=== PATIENT | female | born 1985 | race Caucasian/White ===

== ENCOUNTER 2016-11-12 17:22 | Emergency (ER) | payer BC ==
[2016-11-12 17:34] VITALS: BP 140/65
--- NOTE | 2016-11-12 18:33 | UC ---
FLU HPI - HPI Summary HPI Summary: Pt c/o influenza like symptoms that began 1 week ago. Pt has c/o sore throat and nasal congestion, and generalized body aches. - History of Current Complaint Chief Complaint: UCGeneralIllness Stated Complaint: FLU LIKE Time Seen by Provider: 11/12/16 18:01 Hx Obtained From: Patient Hx Last Menstrual Period: 10/29/16 ?: No Onset/Duration: Gradual Onset, Lasting Days Severity Currently: Mild Severity Initially: Mild Pain Intensity: 0 Pain Scale Used: 0-10 Numeric Associated Signs & Symptoms: Positive: Myalgia, Sore Throat, Nasal Congestion - Allergy/Home Medications Allergies/Adverse Reactions: Allergies Allergy/AdvReac Type Severity Reaction Status Date / Time Cephalexin [From Keflex] Allergy Severe Anaphylatic Verified 11/12/16 17:35 Shock Ibuprofen Allergy Severe "internal Verified 11/12/16 17:35 bleeding" Home Medications: Home Medications Acetaminophen [Extra Strength Acetaminop] 1,000 mg PO ONCE 11/12/16 [History Confirmed 11/12/16] HYDROcodone/ACETAMIN 5-325 MG* [[place] 5-325 TAB*] 1 tab PO Q4H PRN 11/12/16 [ History Confirmed 11/12/16] NK [No Home Medications Reported] 11/12/16 [History Confirmed 11/12/16] Omeprazole CAP* [Prilosec CAP* 20 MG] 20 mg PO DAILY 11/12/16 [History Confirmed 11/12/16] PMH/Surg Hx/FS Hx/Imm Hx Previously Healthy: Yes - Surgical History Surgical History: Yes Surgery Procedure, Year, and Place: neck cervical fusion; screw into R knee; R ankle fractured and pins in it/x3 - Family History Known Family History: Positive: Other - positive FMH of URI - Social History Lives: With Family Alcohol Use: Occasionally Substance Use Type: None Smoking Status (MU): Never Smoked Tobacco - Immunization History Most Recent Influenza Vaccination: [id number] Review of Systems Constitutional: Fatigue Skin: Negative Eyes: Negative ENT: Sore Throat, Other - nasal congestion Respiratory: Cough Cardiovascular: Negative Gastrointestinal: Negative Genitourinary: Negative Motor: Decreased ROM - right ankle Neurovascular: Negative Musculoskeletal: Arthralgia, Decreased ROM - right ankle, Myalgia Neurological: Negative Psychological: Negative All Other Systems Reviewed And Are Negative: Yes Physical Exam Triage Information Reviewed: Yes Appearance: Ill-Appearing Vital Signs: Initial Vital Signs Temp 98.6 F 11/12/16 17:28 Pulse 96 11/12/16 17:28 Resp 17 11/12/16 17:28 BP 140/65 11/12/16 17:28 Pulse Ox 100 11/12/16 17:28 Vital Signs Reviewed: Yes ENT Exam: Other ENT: Positive: Nasal congestion, TM bulging Neck exam: Normal Respiratory Exam: Normal Cardiovascular Exam: Normal Musculoskeletal Exam: Other Musculoskeletal: Positive: Strength Limited @ - right ankle, ROM Limited @ Neurological Exam: Normal Psychological Exam: Normal Skin Exam: Normal Flu Course/Dx - Differential Dx/Diagnosis Differential Diagnosis/HQI/PQRI: Upper Respiratory Infection, Other - viral syndrome Provider Diagnoses: viral syndrome Discharge - Discharge Plan Condition: Stable Disposition: HOME Patient Education Materials: Viral Syndrome (ED) Forms: *Work Release Referrals: No Primary Care Phys,NOPCP [Primary Care Provider] - If Needed
== END 2016-11-12 18:24 | disposition home or self-care (01) ==
LOC: UCCORT 17:22
DX: B34.9 Viral infection, unspecified (principal); R03.0 Elevated blood-pressure reading, without diagnosis of hypertension; Z88.6 Allergy status to analgesic agent; Z88.1 Allergy status to other antibiotic agents
CPT/HCPCS: 87502; 87651; 99201; G0463

== ENCOUNTER 2017-07-06 14:47 | Emergency (ER) | payer SELFPAY ==
[2017-07-06 14:57] VITALS: BP 115/71
--- NOTE | 2017-07-06 15:07 | UC ---
Skin Complaint HPI - HPI Summary HPI Summary: 31F presents with rash since yesterday. She has been traveling all day from [place]. She denies any current chest pain or SOB. She denies any difficulty swallowing. She has never had this rash before. She tried some tea tree oil on it without relief. She denies any new product. It started on her arms and then since spread to her hips. She denies any history of eczema. She denies any fever. She states the rash is itchy. - History of Current Complaint Chief Complaint: UCRash Time Seen by Provider: 07/06/17 14:55 Stated Complaint: POSSIBLE ALLERGIC REACTION Hx Last Menstrual Period: PRESENT - Allergy/Home Medications Allergies/Adverse Reactions: Allergies Allergy/AdvReac Type Severity Reaction Status Date / Time Cephalexin [From Keflex] Allergy Severe Anaphylatic Verified 07/06/17 14:57 Shock Ibuprofen Allergy Severe "internal Verified 07/06/17 14:57 bleeding" Review of Systems Constitutional: Negative Skin: Rash Respiratory: Negative Cardiovascular: Negative All Other Systems Reviewed And Are Negative: Yes PMH/Surg Hx/FS Hx/Imm Hx Endocrine History: Other Other Endocrine History: no DM Cardiovascular History: Other Other Cardiovascular History: no CAD - Surgical History Surgical History: Yes Surgery Procedure, Year, and Place: neck cervical fusion; screw into R knee; R ankle fractured and pins in it/x3 - Family History Known Family History: Positive: Other - positive FMH of URI - Social History Alcohol Use: Occasionally Substance Use Type: None Smoking Status (MU): Never Smoked Tobacco - Immunization History Most Recent Influenza Vaccination: [id number] Physical Exam Triage Information Reviewed: Yes Appearance: Well-Appearing Vital Signs: Initial Vital Signs Temp 97.6 F 07/06/17 14:52 Pulse 95 07/06/17 14:52 Resp 18 07/06/17 14:52 BP 115/71 07/06/17 14:52 Pulse Ox 100 07/06/17 14:52 Vital Signs Reviewed: Yes Eyes: Positive: Conjunctiva Clear ENT: Positive: Normal ENT inspection, Pharynx normal, TMs normal Respiratory: Positive: Lungs clear, Normal breath sounds Cardiovascular: Positive: RRR Abdomen Description: Positive: Nontender, Soft Bowel Sounds: Positive: Present Musculoskeletal Exam: Normal Neurological Exam: Normal Psychological Exam: Normal Skin: Positive: Other - macular rash across arms, hips Course/Dx - Course Course Of Treatment: 31F presents with rash since yesterday. She has been traveling all day from [place]. She denies any current chest pain or SOB. She denies any difficulty swallowing. She has never had this rash before. She tried some tea tree oil on it without relief. She denies any new product. It started on her arms and then since spread to her hips. She denies any history of eczema. She denies any fever. She states the rash is itchy. on exam has macular rash across arms and hips. could be allergic vs bug bites vs dermatitis but will treat with topical steriod to cover all above. patient understand and agrees with plan. - Differential Diagnoses - Skin Complaint Differential Diagnoses: Abscess, Cellulitis, Contact Dermatitis, Eczema, Local Allergic Reaction, Poison Kayy - Diagnoses Provider Diagnoses: rash Discharge - Discharge Plan Condition: Good Disposition: HOME Prescriptions: Triamcinolone 0.1% OINT(NF) [Kenalog 0.1% OINT(NF)] 1 applic TOPICAL BID #1 tube Patient Education Materials: Dermatitis (ED) Referrals: Jerome Palacios DO [Primary Care Provider] - Additional Instructions: Apply steroid cream to area twice a day Take Benadryl every 6 hours for itching Follow up with primary within 5 days Return to ED if develop any new or worsening symptoms
== END 2017-07-06 15:25 | disposition home or self-care (01) ==
LOC: UCCORT 14:47
DX: R21 Rash and other nonspecific skin eruption (principal); Z88.1 Allergy status to other antibiotic agents; Z88.6 Allergy status to analgesic agent
CPT/HCPCS: 99211; G0463

== ENCOUNTER 2017-07-31 20:10 | Emergency (ER) | payer BC ==
[2017-07-31 20:27] VITALS: BP 134/65
[2017-07-31] MEDS ORDERED: Albuterol/Ipratropium NEB.SOL* Albuterol 2.5 MG/Ipratropium 0.5 MG 3 ML INH ONE (20:36)
[2017-07-31] MEDS ORDERED: predniSONE TAB* 20 MG PO ONE (20:36)
--- NOTE | 2017-07-31 20:48 | ED ---
Respiratory - HPI Summary HPI Summary: 31 yr old with complaint of ear pain, sore throat, laryngitis, and coughing. Onset couple of days ago. The patient denies CP. She states she has a history of asthma. She denies drooling, stridor. She is concerned she has influenza or strep throat. - History of Current Complaint Chief Complaint: UCRespiratory Stated Complaint: ST/CHEST CONGESTION Time Seen by Provider: 07/31/17 20:19 - Allergy/Home Medications Allergies/Adverse Reactions: Allergies Allergy/AdvReac Type Severity Reaction Status Date / Time Cephalexin [From Keflex] Allergy Severe Anaphylatic Verified 07/31/17 20:22 Shock Ibuprofen Allergy Severe "internal Verified 07/31/17 20:22 bleeding" Home Medications: Home Medications Erhezxp-Uduzpuspkwujk-Vlmrryji [Pamprin Max] 2 tab PO Q12H PRN 07/31/17 [ History Confirmed 07/31/17] Dextromethorphan-Phenylephrine [Vicks Dayquil Cold & Flu] 2 cap PO Q6H PRN 07/31 [History Confirmed 07/31/17] HYDROcodone/ACETAMIN 5-325 MG* [[place] 5-325 TAB*] 1 - 2 tab PO Q6H PRN 07/31/17 [History Confirmed 07/31/17] PMH/Surg Hx/FS Hx/Imm Hx Respiratory History: Reports: Other Respiratory Problems/Disorders - ALLERGIES - Surgical History Surgery Procedure, Year, and Place: neck cervical fusion; screw into R knee; R ankle fractured and pins in it/x3 Infectious Disease History: No Infectious Disease History: Denies: History Other Infectious Disease, Traveled Outside the [place] in Last 30 Days - Family History Known Family History: Positive: Other - positive FMH of URI - Social History Alcohol Use: Rare Substance Use Type: Reports: None Smoking Status (MU): Never Smoked Tobacco Review of Systems Positive: Fever, Chills Positive: Sore Throat, Ear Ache, Nasal Discharge Positive: Cough All Other Systems Reviewed And Are Negative: Yes Physical Exam Triage Information Reviewed: Yes Vital Signs On Initial Exam: Initial Vitals Temp Pulse Resp BP Pulse Ox 99.1 F 96 20 134/65 99 07/31/17 20:18 07/31/17 20:18 07/31/17 20:18 07/31/17 20:18 07/31/17 20:18 Vital Signs Reviewed: Yes Appearance: Positive: Well-Appearing, No Pain Distress Skin: Positive: Warm Eyes: Positive: EOMI ENT: Positive: Pharyngeal erythema, TM red - left side red, right side with effusion, Hoarse voice - laryngitis sound, Uvula midline. Negative: Tonsillar swelling, Tonsillar exudate, Muffled voice Neck: Positive: Nontender Respiratory/Lung Sounds: Positive: Clear to Auscultation, Breath Sounds Present Cardiovascular: Positive: RRR. Negative: Murmur Abdomen Description: Positive: Nontender Musculoskeletal: Positive: Other - she has a cam walker right foot. Neurological: Positive: Sensory/Motor Intact, Alert, Oriented to Person Place, Time, CN Intact II-III, Speech Normal Psychiatric: Positive: Normal - Jesenia Coma Scale Best Eye Response: 4 - Spontaneous Best Motor Response: 6 - Obeys Commands Best Verbal Response: 5 - Oriented Diagnostics - Vital Signs Vital Signs Temp Pulse Resp BP Pulse Ox 07/31/17 20:18 99.1 F 96 20 134/65 99 - Laboratory Lab Statement: Any lab studies that have been ordered have been reviewed, and results considered in the medical decision making process. Disposition - Course Course Of Treatment: 31 yr old with Otitis media and coughing with some diminished breath sounds and laryngitis. Will Rx ear with biaxin, and also put on steroids and mdi. - Diagnoses Provider Diagnoses: Otitis media, Upper respiratory infection, Laryngitis Discharge - Discharge Plan Condition: Good Disposition: HOME Prescriptions: Albuterol HFA INHALER* [Ventolin HFA Inhaler*] 1 - 2 puff INH Q6H PRN #1 mdi PRN Reason: Cough Clarithromycin TAB* [Biaxin 500 MG TAB*] 500 mg PO BID #20 tab predniSONE TAB* [Deltasone TAB*] 40 mg PO DAILY #8 tab Patient Education Materials: Laryngitis (ED), Otitis Media (ED), Asthma (ED) Referrals: Jerome Palacios DO [Primary Care Provider] - 4 Days
[2017-07-31] MEDS ORDERED: Azithromycin TAB* 250 MG PO ONE (21:07)
[2017-07-31] MEDS ORDERED: Clarithromycin TAB* 500 MG ONE (21:18)
[2017-07-31] MEDS ORDERED: Clarithromycin TAB* 500 MG PO ONE (21:18)
== END 2017-07-31 21:23 | disposition home or self-care (01) ==
LOC: UCCORT 20:10
DX: H66.90 Otitis media, unspecified, unspecified ear (principal); J06.9 Acute upper respiratory infection, unspecified; J04.0 Acute laryngitis; J45.909 Unspecified asthma, uncomplicated
CPT/HCPCS: 87502; 87651; 99213; A9270-GY; G0463; J7512

== ENCOUNTER 2017-09-14 10:40 | Emergency (ER) | payer OTHER ==
[2017-09-14] MEDS ORDERED: HYDROcodone/ACETAMIN 5-325 MG* 1 TAB PO ONE (12:25)
--- NOTE | 2017-09-14 14:00 | RAD ---
Indication: Right arm swelling and pain. Duplex Doppler sonography of the right upper extremity deep venous system was performed. Bilaterally the internal jugular veins appear to demonstrate normal phasic flow. The subclavian veins demonstrates normal augmentation with normal phasic flow. The right axillary vein, brachial vein, basilic vein and cephalic veins appear patent and compressible. The right radial and ulnar vein are also patent and compressible. IMPRESSION: No evidence of deep venous thrombosis of the right upper extremity is present.
--- NOTE | 2017-09-14 14:03 | RAD ---
HISTORY: Right leg swelling pain and numbness COMPARISONS: None relevant TECHNIQUE: Multiple transverse and longitudinal ultrasound images were obtained of the right lower extremity from the level of the common femoral vein inferiorly through to the infrapopliteal veins using grayscale, color Doppler, and spectral Doppler imaging with and without compression and with augmentation. Comparison images were obtained of the contralateral common femoral vein. FINDINGS: VEINS: The venous system of the right lower extremity is compressible throughout its course, with normal flow on color Doppler imaging and normal response to augmentation on spectral Doppler imaging. SOFT TISSUES: Unremarkable. OTHER FINDINGS: None. IMPRESSION: NO RIGHT LOWER EXTREMITY DEEP VEIN THROMBOSIS
--- NOTE | 2017-09-14 14:23 | RAD ---
INDICATION: Arm and leg numbness COMPARISON: None TECHNIQUE: Noncontrast axial source images were acquired from the skull base to the vertex. FINDINGS: Ventricles/sulci: The ventricles and cisterns are normal in size and configuration for age. Brain parenchyma: There is no focal parenchymal finding, evidence of intracranial mass, or intracranial mass effect. Intracranial hemorrhage:None. Extra-axial spaces: There are no abnormal extra axial fluid collections or evidence of extra-axial mass. Calvarium: There is no calvarial fracture or other calvarial abnormality. Scalp: There is no evidence of scalp or extracalvarial soft tissue abnormality. Paranasal sinuses/mastoid: The paranasal sinuses and mastoid air cells are clear. Other: None. IMPRESSION: No acute intracranial findings
--- NOTE | 2017-09-14 14:27 | RAD ---
Indication: Right arm leg weakness. CT of the cervical spine was obtained in the axial plane. Sagittal and coronal reconstructed images were obtained. The skull base demonstrates no fracture. Mastoid air cells are well aerated. The C1 ring is intact without fracture. The odontoid process is unremarkable. At C2-C3 there is no disc protrusion noted. No central or foraminal stenosis is noted. At C3-C4 no disc protrusion is noted. No central or foraminal stenosis is noted. At C4-C5 there is degenerative disc disease. No central or foraminal stenosis is noted. There is fusion of C5, C6 and C7 with anterior plate and screws. Metal artifact makes evaluation of the spinal canal difficult. The intervertebral foramen appear widely patent. The lung apices are unremarkable. IMPRESSION: No fracture of the cervical spine is noted. Anterior fusion of C5-C7 with anterior plate and screws. Spinal canal is intact. Evaluation of the spinal canal from C5 through C7 is limited due to anterior plate and screws.
[2017-09-14 14:47] VITALS: BP 126/59
--- NOTE | 2017-09-14 15:16 | RAD ---
Indication: Right ankle pain. 3 views of the right ankle demonstrates fusion of the distal tibia to the talus and fibula. No recent fracture is noted. No obvious hardware failure is noted. IMPRESSION: Fusion of the tibia, fibula and talus. No recent fracture is noted. No obvious hardware failure is identified.
--- NOTE | 2017-09-14 15:55 | UC ---
Joon Matthews Julia, scribed for Yaya Eduardo MD on 09/14/17 at 1202 . Lower Extremity/Ankle HPI - HPI Summary HPI Summary: This patient is a 31 year old F presenting to [facility] with a chief complaint of RLE and R anterior hip pain, swelling, tightness and numbness (worse on lateral than medial). Patient reports mild neck pain and tingly toes. Patient states symptoms have spread to her RUE with numbness from her elbow to fingers. Patient denies back pain or recent trauma. The patient rates the pain 9/10 in severity. Symptoms aggravated by walking. Symptoms mildly alleviated by hydrocodone. Patient has no relief from elevation or heat. Patient broke her R ankle in 2005, had reconstructive R ankle surgery in February and March of 2016. Patient has been wearing a boot since mid-June 2017. Patient typically uses knee walker brace, and sometimes uses a cane to assist with walking. - History of Current Complaint Chief Complaint: UCLowerExtremity Stated Complaint: LEG PAIN Time Seen by Provider: 09/14/17 11:53 Hx Obtained From: Patient Hx Last Menstrual Period: 08/23/17 Onset/Duration: Still Present Pain Intensity: 9 Pain Scale Used: 0-10 Numeric Aggravating Factor(s): Ambulation Alleviating Factor(s): OTC Meds Related History: Occupational Injury - Allergies/Home Medications Allergies/Adverse Reactions: Allergies Allergy/AdvReac Type Severity Reaction Status Date / Time Cephalexin [From Keflex] Allergy Severe Anaphylatic Verified 07/31/17 20:22 Shock Ibuprofen Allergy Severe "internal Verified 07/31/17 20:22 bleeding" PMH/Surg Hx/FS Hx/Imm Hx Cardiovascular History: Other - "irregular heartbeat" Other Cardiovascular History: "irregular heartbeat" - Surgical History Surgical History: Yes Surgery Procedure, Year, and Place: neck cervical fusion; screw into R knee; R ankle fractured and pins in it/x3 - Family History Known Family History: Positive: Other - positive FMH of URI - Social History Alcohol Use: Rare Substance Use Type: None Smoking Status (MU): Never Smoked Tobacco - Immunization History Most Recent Influenza Vaccination: Not the 2017/2017 Season Review of Systems Constitutional: Negative Musculoskeletal: Other: - pain, numbness, swelling of RUE and RLE, mild neck pain, Neurological: Numbness - R elbow to forarm,R toes All Other Systems Reviewed And Are Negative: Yes Physical Exam Triage Information Reviewed: Yes Vital Signs: Initial Vital Signs Temp 98.1 F 09/14/17 10:47 Pulse 90 09/14/17 10:47 Resp 16 09/14/17 10:47 BP 140/79 09/14/17 10:47 Pulse Ox 100 09/14/17 10:47 Vital Signs Reviewed: Yes - Additional Comments General: well-appearing, mild pain distress Skin: warm, color reflects adequate perfusion, dry Head: normal Eyes: EOMI, MANJIT ENT: normal Neck: supple, nontender Respiratory: CTA, breath sounds present Cardiovascular: RRR Abdomen: soft, nontender Bowel: present Musculoskeletal: strength/ROM intact, RUE has good senstation on exam, RUE has good capillary refill and radial pulses. No upper arm tenderness present. RLE is tender to palpation around ankle and calf, with more tenderness medially. Knee is non-tender. R Thigh tenderness worse laterally than medially. Pt is wearing walking boot on right. Neurological: normal, sensory/motor intact, A&O x3 Psychological: affect/mood appropriate Diagnostics - Radiology RLE US Radiology Interpretation Completed By: Radiologist - NO RIGHT LOWER EXTREMITY DEEP VEIN THROMBOSIS. ED Physician has reviewed this report. RUE US Radiology Interpretation Completed By: Radiologist Brain CT Radiology Interpretation Completed By: Radiologist - No acute intracranial findings. ED Physician has reviewed this report. C-Spine CT Radiology Interpretation Completed By: Radiologist - No fracture of the cervical spine is noted. Anterior fusion of C5-C7 with anterior plate and screws. Spinal canal is intact. Evaluation of the spinal canal from C5 through C7 is limited due to anterior plate and screws. ED Physician has reviewed this report. R Ankle XR Radiology Interpretation Completed By: Radiologist - Fusion of the tibia, fibula and talus. No recent fracture is noted. No obvious hardware failure is identified. ED Physician has reviewed this report. Lower Extremity Course/Dx - Course Course Of Treatment: DISCUSSED RESULTS WITH THE PATIENT. F/U WITH [facility]. - Differential Dx/Diagnosis Provider Diagnoses: RIGHT LEG AND ARM PAIN Discharge - Discharge Plan Condition: Stable Disposition: HOME Patient Education Materials: Leg Pain (ED), Arm Pain (ED) Referrals: [facility] [place] [facility] [Outside] No Primary Care Phys,NOPCP [Primary Care Provider] - Additional Instructions: FOLLOW UP WITH YOUR ORTHOPEDIST. CALL TODAY FOR FOLLOW UP. GET RECHECKED FOR ANY WORSENING OF YOUR CONDITION OR QUESTIONS OR CONCERNS. The documentation as recorded by the Joon bettencourt Julia accurately reflects the service I personally performed and the decisions made by me, Yaya Eduardo MD.
== END 2017-09-14 16:10 | disposition home or self-care (01) ==
LOC: UCEAST 10:40
DX: M79.604 Pain in right leg (principal); M79.601 Pain in right arm; Z88.6 Allergy status to analgesic agent; Z88.3 Allergy status to other anti-infective agents
CPT/HCPCS: 70450; 72125; 99211; G0463